=== PATIENT | male | born 1965 | race Asian ===

== ENCOUNTER 2017-08-17 08:35 | Outpatient (CLI) | payer OTHER | END 2017-08-17 19:22 | disposition home or self-care (01) | LOC: CT 08:35 | DX: M54.2 Cervicalgia (principal) ==

== ENCOUNTER 2018-02-28 10:31 | Emergency (ER) | payer OTHER ==
[~2018-02-28] VITALS: Ht 180.3 cm; Wt 97.1 kg
[2018-02-28 11:03] LABS: PLATELET COUNT 225 K/uL (142-355)
[2018-02-28 14:20] VITALS: BP 138/74; TEMP 97.7
== END 2018-02-28 14:20 | disposition short-term general hospital (02) ==
LOC: ED 10:31
PROVIDERS: Specialist
DX: I10 Essential (primary) hypertension (principal); E11.65 Type 2 diabetes mellitus with hyperglycemia; R07.89 Other chest pain
CPT/HCPCS: 36415; 80048; 82550; 82553; 83735; 84100; 84484; 85027; 93005; 96361; 96365; 96375; 99284; J3490